=== PATIENT | male | born 1945 | race Caucasian/White ===

== ENCOUNTER 2018-10-01 10:42 | Observation (INO) | payer OTHER ==
[2018-10-01] VITALS (28 sets, daily range): BP systolic 112–162; BP diastolic 46–87; PULSE 58–76; RESP 14–21; Ht 166.4 cm; Wt 89.2 kg
[~2018-10-01] VITALS: Ht 166.4 cm; Wt 89.2 kg
[~2018-10-01 10:42] MED LIST: CIPROFLOXACIN 400 MG in D5W 200 ML IVPB ONE; GLYCOPYRROLATE 0.4 MG INJ ONE; NEOSTIGMINE 10 MG INJ ONE; SEVOFLURANE 15 MIN ONE
[2018-10-01] MEDS ORDERED: DOCU-144 PO (11:31)
[2018-10-01] MEDS ORDERED: LOSA100T3 PO (11:31)
[2018-10-01] MEDS ORDERED: INSU100I12 SQ (11:32)
[2018-10-01] MEDS ORDERED: HYDR25TA6 PO (11:33)
[2018-10-01] MEDS ORDERED: ATOR40TA68 PO (11:35)
[2018-10-01] MEDS ORDERED: HYDR-4011 PO (11:36)
[2018-10-01] MEDS ORDERED: METF100010 PO (11:37)
[2018-10-01] MEDS ORDERED: ACET-2047 PO (11:37)
[2018-10-01] MEDS ORDERED: METO-429 PO (11:39)
[2018-10-01] MEDS ORDERED: NITR0.4T39 SL (11:40)
[2018-10-01] MEDS ORDERED: OMEP20CA16 PO (11:40)
[2018-10-01] MEDS ORDERED: CARB15DR7 BOTH EYES (11:41)
[2018-10-01] MEDS ORDERED: SENN-120 PO (11:41)
[2018-10-01] MEDS ORDERED: TAMS0.4C2 PO (11:41)
[2018-10-01] MEDS ORDERED: TRAM50TA PO (11:42)
[2018-10-01] MEDS ORDERED: ASCO500C7 PO (11:42)
[2018-10-01] MEDS ORDERED: CHOL100062 PO (11:43)
--- NOTE | 2018-10-01 12:43 | PREAC ---
Date/Time of Note Date/Time of Note DATE: 10/01/18 TIME: 12:41 Anesthesia Eval and Record Evaluation Time Pre-Procedure Interview DATE: 10/01/18 TIME: 12:41 Age 72 Sex male NPO: 8 hrs Preoperative diagnosis BLADDER CANCER Planned procedure TURBT, POSS BILAT RETRO PYELOGRAM AND INSERTION OF STENTS, MITOMYCIN Past Medical History Past Medical History: Includes Cardio: HTN, Dyslipidemia, CAD (EF 60% 09/08/18), CABG (2010), Other (CARDIAC CLEARANCE FROM DR DEE 09/24/18. ) Endo: Diabetes (GLUCOSE 149) Pulm: Smoking Hx (STILL SMOKES 1-3 CIGS/DAY, LAST SMOKE YESTERDAY ) Surgery & Anesthesia Issues No known issue Meds Anticoagulation: Yes Beta Edil within 24 hr: Yes Reported Medications Cholecalciferol* (Vitamin D3*) 1,000 Unit Tablet, 1000 UNIT PO DAILY, TAB 10/01/18 Ascorbic Acid* (Vitamin C*) 500 Mg Capsule.sa, 500 MG PO BID, CAP 10/01/18 Tramadol Hcl* (Ultram*) 50 Mg Tablet, 50 MG PO Q6H PRN for PAIN, TAB 10/01/18 Tamsulosin Hcl* (Tamsulosin Hcl*) 0.4 Mg Cap.er.24h, 0.4 MG PO HS, CAP 10/01/18 Sennosides* (Senna Lax*) 8.6 Mg Tablet, 1 TAB PO BID, TAB 10/01/18 Carboxymethylcellulose Sodium (Refresh Liquigel) 15 Ml Drp.lq.gel, 2 DRP BOTH EYES BID, BOTTLE 10/01/18 Omeprazole* (Omeprazole*) 20 Mg Capsule.dr, 20 MG PO DAILY, #30 CAP 10/01/18 Nitroglycerin* (Nitrostat*) 0.4 Mg Tab.subl, 0.4 MG SL Q5MIN PRN for CHEST PAIN, BOTTLE 10/01/18 Metoprolol Tartrate* (Lopressor*) 50 Mg Tab, 50 MG PO BID, #60 TAB 10/01/18 Metformin Hcl* (Metformin Hcl*) 1,000 Mg Tablet, 1000 MG PO WITH BREAKFAST, #30 TAB 10/01/18 Acetaminophen* (Acetaminophen*) 650 Mg Tablet, 650 MG PO Q4 PRN for PAIN AND OR ELEVATED TEMP, #30 TAB 10/01/18 Hydrocodone/Acetaminophen ([place] 5-325 Tablet) 1 Each Tablet, 2 EACH PO Q6 PRN for PAIN LEVEL 7-10, TAB 10/01/18 Hydrocodone/Acetaminophen ([place] 5-325 Tablet) 1 Each Tablet, 1 EACH PO Q6 PRN for PAIN LEVEL 4-6, TAB 10/01/18 Atorvastatin* (Atorvastatin*) 40 Mg Tablet, 40 MG PO QHS, #30 TAB 10/01/18 Hydrochlorothiazide* (Hydrochlorothiazide*) 25 Mg Tab, 25 MG PO DAILY, #30 TAB HOLD IF SBP BELOW 110 OR HR BELOW 60 10/01/18 Insulin Lispro (Humalog Kwikpen U-100) 100 Unit/1 Ml Insuln.pen, 0 SQ DAILY PRN for ELEVATED BLOOD PRESSURE, EA 10/01/18 Losartan Potassium* (Cozaar*) 100 Mg Tablet, 100 MG PO DAILY, #30 TAB HOLD IF SBP BELOW 110 OR HR BELOW 60 10/01/18 Docusate Sodium* (Colace*) 100 Mg Capsule, 100 MG PO DAILY, #30 CAP 10/01/18 Meds reviewed: Yes Allergies Coded Allergies: Penicillins (Verified Allergy, Unknown, 10/01/18) Allergies Reviewed: Yes Labs/Studies Labs Reviewed: Reviewed by anesthesiologist test: N/A Studies: ECG, CXR, 2D Echo Pre-procedure Exam Last vitals Vital Signs Date Temp Pulse Resp B/P (MAP) Pulse Ox O2 O2 Flow FiO2 Time Delivery Rate 10/01/18 97.6 68 18 121/60 97 Room Air 12:17 (80) Airway: Adequate mouth opening, Adequate thyromental dist Mallampati: Mallampati II Teeth: Normal Lung: Normal Heart: Normal ASA Physical Status ASA physical status: 3 Emergency: None Planned Anesthetic General/MAC: ETT Planned Pain Management Parenteral pain med, Local by surgeon Pre-operative Attestations Prior to commencing anesthesia and surgery, the patient was re-evaluated, there was verification of: *The patient's identity *The results of appropriate recent lab work and preoperative vital signs *The above evaluation not changing prior to induction *Anesthetic plan, risk benefits, alternative and complications discussed with patient/family; questions answered; patient/family understands, accepts and wishes to proceed. LIVAN ENGLE Oct 01, 2018 12:43
--- NOTE | 2018-10-01 14:24 | HPN ---
Date/Time of Note Date/Time of Note DATE: 10/01/18 TIME: 14:24 Interval H&P Admission Note Pt. seen H&P reviewed: No system changes NINFA ARAGON Oct 01, 2018 14:24
[2018-10-01] MEDS ORDERED: ROCURONIUM 50 MG INJ ONE (14:47)
[2018-10-01] MEDS ORDERED: SUCCINYLCHOLINE CHLORIDE 100 MG/5 ML SYG IV ONE (14:47)
[2018-10-01] MEDS ORDERED: PROPOFOL 20 ML ONE (14:47)
[2018-10-01] MEDS ORDERED: LIDOCAINE 2% (SDV) 5 ML INJ ONE (14:47)
[2018-10-01] MEDS ORDERED: GLYCOPYRROLATE 0.4 MG INJ ONE (14:47)
[2018-10-01] MEDS ORDERED: HYDROmorphONE 1 MG/5 ML IV SYRINGE IV PRN ×3 (15:00)
[2018-10-01] MEDS ORDERED: hydrALAzine 20 MG INJ IV PRN (15:00)
[2018-10-01] MEDS ORDERED: EPHEDrine SULFATE 50 MG/5 ML SYG IV PRN (15:00)
[2018-10-01] MEDS ORDERED: OXYCODONE/ACETAMINOPHEN (5/325) TAB PO PRN ×2 (15:00)
[2018-10-01] MEDS ORDERED: DIPHENHYDRAMINE 50 MG INJ IV PRN (15:00)
[2018-10-01] MEDS ORDERED: FENTAnyl 50 MCG/ML VIAL IV PRN ×3 (15:00→20:00)
[2018-10-01] MEDS ORDERED: LABETALOL HCL 20MG INJ IV PRN (15:00)
[2018-10-01] MEDS ORDERED: ONDANSETRON 4 MG INJ IV PRN ×2 (15:00→17:00)
[2018-10-01] MEDS ORDERED: MEPERIDINE 25 MG INJ IV PRN (15:00)
[2018-10-01] MEDS ORDERED: METOCLOPRAMIDE 10 MG INJ IV PRN (15:00)
[2018-10-01] MEDS ORDERED: MIDAZOLAM 1 MG/ML 2 ML INJ IV PRN (15:00)
[2018-10-01] MEDS: DEXTROSE 5%-0.45% NACL 1,000 ML IV SCH (16:19)
[2018-10-01] MEDS ORDERED: BELLADONNA ALK/OPIUM SUPP PR PRN (16:30)
[2018-10-01] MEDS ORDERED: MAGNESIUM HYDROXIDE 30ML CUP PO PRN (16:30)
--- NOTE | 2018-10-01 16:55 | CONS ---
Assessment/Plan Assessment/Plan Hospital Course (Demo Recall) Patient is a male with a past medical history significant for bladder cancer, coronary artery disease status post CABG in 2010, dyslipidemia, hypertension, tobacco use who presents to [facility] for elective bladder tumor resection. Patient currently is the postanesthesia care unit and is complaining of severe surgical site pain. Patient currently denies shortness of breath, chest pain, headache, leg pain. Patient does state that he has some nausea and is having mild vomiting. Objective Physical exam General: Patient is laying in bed and answers questions appropriately Mentation: Patient is alert and oriented 4, Head: Normocephalic atraumatic Eyes: EOMI, pupils reactive to light Neck: Supple, nontender, midline Respiratory: Clear to auscultation bilaterally Cardiovascular: regular rate, no obvious murmurs Gastrointestinal: non-tender to palpation, bowel sounds heard. Neurological: Moves all extremities spontaneously Skin: No new skin lesions Assessment and plan Bladder cancer status post TURBT -Unknown type, patient still in a lot of pain so unable to get more history -Elective surgery, patient will stay inpatient for CBI per urologist -Urology, Dr. Luke to manage urological issues -Follow-up with pathology reports and bladder cancer treatment with urologist and outpatient oncologist Coronary artery disease status post CABG in 2010 -Continue home meds -Continue aspirin when okay with urology Diabetes mellitus -Insulin while in house Dyslipidemia -Continue home meds Hypertension -Continue home meds GERD -Protonix Disposition -Per urology, stay overnight for CBI, treat pain as needed. Internal medicine will consult Consultation Date/Type/Reason Admit Date/Time Oct 01, 2018 at 16:22 Date/Time of Note DATE: 10/01/18 TIME: 16:55 Past Medical History Home Meds Reported Medications Cholecalciferol* (Vitamin D3*) 1,000 Unit Tablet, 1000 UNIT PO DAILY, TAB 10/01/18 Ascorbic Acid* (Vitamin C*) 500 Mg Capsule.sa, 500 MG PO BID, CAP 10/01/18 Tramadol Hcl* (Ultram*) 50 Mg Tablet, 50 MG PO Q6H PRN for PAIN, TAB 10/01/18 Tamsulosin Hcl* (Tamsulosin Hcl*) 0.4 Mg Cap.er.24h, 0.4 MG PO HS, CAP 10/01/18 Sennosides* (Senna Lax*) 8.6 Mg Tablet, 1 TAB PO BID, TAB 10/01/18 Carboxymethylcellulose Sodium (Refresh Liquigel) 15 Ml Drp.lq.gel, 2 DRP BOTH EYES BID, BOTTLE 10/01/18 Omeprazole* (Omeprazole*) 20 Mg Capsule.dr, 20 MG PO DAILY, #30 CAP 10/01/18 Nitroglycerin* (Nitrostat*) 0.4 Mg Tab.subl, 0.4 MG SL Q5MIN PRN for CHEST PAIN, BOTTLE 10/01/18 Metoprolol Tartrate* (Lopressor*) 50 Mg Tab, 50 MG PO BID, #60 TAB 10/01/18 Metformin Hcl* (Metformin Hcl*) 1,000 Mg Tablet, 1000 MG PO WITH BREAKFAST, #30 TAB 10/01/18 Acetaminophen* (Acetaminophen*) 650 Mg Tablet, 650 MG PO Q4 PRN for PAIN AND OR ELEVATED TEMP, #30 TAB 10/01/18 Hydrocodone/Acetaminophen ([place] 5-325 Tablet) 1 Each Tablet, 2 EACH PO Q6 PRN for PAIN LEVEL 7-10, TAB 10/01/18 Hydrocodone/Acetaminophen ([place] 5-325 Tablet) 1 Each Tablet, 1 EACH PO Q6 PRN for PAIN LEVEL 4-6, TAB 10/01/18 Atorvastatin* (Atorvastatin*) 40 Mg Tablet, 40 MG PO QHS, #30 TAB 10/01/18 Hydrochlorothiazide* (Hydrochlorothiazide*) 25 Mg Tab, 25 MG PO DAILY, #30 TAB HOLD IF SBP BELOW 110 OR HR BELOW 60 10/01/18 Insulin Lispro (Humalog Kwikpen U-100) 100 Unit/1 Ml Insuln.pen, 0 SQ DAILY PRN for ELEVATED BLOOD PRESSURE, EA 10/01/18 Losartan Potassium* (Cozaar*) 100 Mg Tablet, 100 MG PO DAILY, #30 TAB HOLD IF SBP BELOW 110 OR HR BELOW 60 10/01/18 Docusate Sodium* (Colace*) 100 Mg Capsule, 100 MG PO DAILY, #30 CAP 10/01/18 Medications Current Medications Hydromorphone HCl (Dilaudid) 0.2 mg PACU PRN IV MILD PAIN 1-3; Start 10/01/18 at 15:00; Stop 10/01/18 at 19:30 Hydromorphone HCl (Dilaudid) 0.4 mg PACU PRN IV MOD PAIN 4-6; Start 10/01/18 at 15:00; Stop 10/01/18 at 19:30 Hydromorphone HCl (Dilaudid) 0.6 mg PACU PRN IV SEVERE PAIN 7-10 Last administered on 10/01/18at 16:39; Admin Dose 0.6 MG; Start 10/01/18 at 15:00; Stop 10/01/18 at 19:30 Fentanyl (Sublimaze) 25 mcg PACU ORDER PRN IV MILD PAIN 1-3; Start 10/01/18 at 15:00; Stop 10/01/18 at 19:30 Fentanyl (Sublimaze) 50 mcg PACU ORDER PRN IV MOD PAIN 4-6; Start 10/01/18 at 15:00; Stop 10/01/18 at 19:30 Fentanyl (Sublimaze) 75 mcg PACU ORDER PRN IV SEVERE PAIN 7-10; Start 10/01/18 at 15:00; Stop 10/01/18 at 19:30 Oxycodone/ Acetaminophen (Percocet (5/ 325)) 1 tab PACU ORDER PRN PO .PAIN 1-5; Start 10/01/18 at 15:00; Stop 10/01/18 at 19:30 Oxycodone/ Acetaminophen (Percocet (5/ 325)) 2 tab PACU ORDER PRN PO .PAIN 6-10; Start 10/01/18 at 15:00; Stop 10/01/18 at 19:30 Ondansetron HCl (Zofran Inj) 4 mg PACU ORDER PRN IV NAUSEA/VOMITING; Start 10/01/18 at 15:00; Stop 10/01/18 at 19:30 Metoclopramide HCl (Reglan) 10 mg PACU ORDER PRN IV NAUSEA/VOMITING; Start 10/01/18 at 15:00; Stop 10/01/18 at 19:30 Labetalol HCl (Labetalol) 5 mg PACU ORDER PRN IV HIGH BLOOD PRESSURE; Start 10/01/18 at 15:00; Stop 10/01/18 at 19:30 Hydralazine HCl (Apresoline) 5 mg PACU ORDER PRN IV HIGH BLOOD PRESSURE; Start 10/01/18 at 15:00; Stop 10/01/18 at 19:30 Ephedrine Sulfate 5 mg PACU ORDER PRN IV BLOOD PRESSURE SUPPORT; Start 10/01/18 at 15:00; Stop 10/01/18 at 19:30 Meperidine HCl (Demerol) 25 mg PACU ORDER PRN IV .RIGORS; Start 10/01/18 at 15:00; Stop 10/01/18 at 19:30 Diphenhydramine HCl (Benadryl) 25 mg PACU ORDER PRN IV .PRURITUS; Start 10/01/18 at 15:00; Stop 10/01/18 at 19:30 Midazolam HCl (Versed) 0.5 mg PACU ORDER PRN IV .ANXIETY; Start 10/01/18 at 15:00; Stop 10/01/18 at 19:30 Dextrose/Sodium Chloride 1,000 ml @ 50 mls/hr Q20H IV ; Start 10/01/18 at 16:19 Acetaminophen/ Hydrocodone Bitart ([place] (5/325)) 1 tab Q4H PRN PO PAIN; Start 10/01/18 at 16:30 Docusate Sodium (Colace) 100 mg BID PO ; Start 10/01/18 at 21:00 Magnesium Hydroxide (Milk Of Mag) 30 ml DAILY PRN PO CONSTIPATION; Start 10/01/18 at 16:30 Ciprofloxacin (Cipro) 500 mg BID@06,18 PO ; Start 10/01/18 at 18:00 Belladonna Alkaloids/Opium (B&O No.15a) 1 supp QID PRN NC PAIN LEVEL 4-6 Last administered on 10/01/18at 16:52; Admin Dose 1 SUPP; Start 10/01/18 at 16:30 IV Flush (NS 3 ml) 3 ml PER PROTOCOL IV ; Start 10/01/18 at 17:00 Ondansetron HCl (Zofran Inj) 4 mg Q6H PRN IV NAUSEA/VOMITING; Start 10/01/18 at 17:00 Acetaminophen (Tylenol Tab) 650 mg Q6H PRN PO .PAIN 1-3 OR TEMP; Start 10/01/18 at 17:00 Morphine Sulfate (morphine) 2 mg Q4H PRN IV .PAIN 7-10; Start 10/01/18 at 17:00 Ascorbic Acid (Vitamin C) 500 mg BID PO ; Start 10/01/18 at 21:00; Status UNV Atorvastatin Calcium (Lipitor) 40 mg QHS PO ; Start 10/01/18 at 21:00; Status UNV Cholecalciferol (Vitamin D) 1,000 unit DAILY PO ; Start 10/02/18 at 09:00; Status UNV Docusate Sodium (Colace) 100 mg DAILY PO ; Start 10/02/18 at 09:00; Status UNV Hydrochlorothiazide (Hydrochlorothiazide) 25 mg DAILY PO ; Start 10/02/18 at 09:00; Status UNV Losartan Potassium (Cozaar) 100 mg DAILY PO ; Start 10/02/18 at 09:00; Status UNV Metoprolol Tartrate (Lopressor) 50 mg BID PO ; Start 10/01/18 at 21:00; Status UNV Tamsulosin HCl (Flomax) 0.4 mg HS PO ; Start 10/01/18 at 21:00; Status UNV Miscellaneous Information (* Miscellaneous Pharmacy Order) Discontinue current oral sulfonylur... ONCE ONCE XX ; Start 10/01/18 at 17:00; Stop 10/01/18 at 17:01; Status UNV Diagnostic Test (Pha) (Accu-Chek) 1 ea 02 XX ; Start 10/02/18 at 02:00; Status UNV Insulin Glargine (Lantus) 18 units DAILY@2000 SC ; Start 10/01/18 at 20:00; Status UNV Insulin Aspart (Novolog Insulin Pen) 4 unit WITH MEALS SC ; Start 10/01/18 at 18:00 Miscellaneous Information (* Miscellaneous Pharmacy Order) HYPOGLYCEMIA PROTOCOL w... ONCE ONCE XX ; Start 10/01/18 at 17:00; Stop 10/01/18 at 17:01; Status UNV Insulin Aspart (Novolog Insulin Pen) NOVOLOG *MILD* ALGORITHM WITH MEALS BEDTIME SC ; Start 10/01/18 at 18:00; Status UNV Miscellaneous Information (* Miscellaneous Pharmacy Order) Discontinue all previ... ONCE ONCE XX ; Start 10/01/18 at 17:00; Stop 10/01/18 at 17:01; Status UNV Allergies: Coded Allergies: Penicillins (Verified Allergy, Unknown, 10/01/18) Social History Smoking Status: Current every day smoker Exam/Review of Systems Exam Vitals Vital Signs Date Temp Pulse Resp B/P (MAP) Pulse Ox O2 O2 Flow FiO2 Time Delivery Rate 10/01/18 98.2 16:27 10/01/18 68 18 121/60 97 Room Air 12:17 (80) Results Results 24hrs Laboratory Tests Test 10/01/18 11:58 Bedside Glucose 149 Medications Medication Current Medications Hydromorphone HCl (Dilaudid) 0.2 mg PACU PRN IV MILD PAIN 1-3; Start 10/01/18 at 15:00; Stop 10/01/18 at 19:30 Hydromorphone HCl (Dilaudid) 0.4 mg PACU PRN IV MOD PAIN 4-6; Start 10/01/18 at 15:00; Stop 10/01/18 at 19:30 Hydromorphone HCl (Dilaudid) 0.6 mg PACU PRN IV SEVERE PAIN 7-10 Last administered on 10/01/18at 16:39; Admin Dose 0.6 MG; Start 10/01/18 at 15:00; Stop 10/01/18 at 19:30 Fentanyl (Sublimaze) 25 mcg PACU ORDER PRN IV MILD PAIN 1-3; Start 10/01/18 at 15:00; Stop 10/01/18 at 19:30 Fentanyl (Sublimaze) 50 mcg PACU ORDER PRN IV MOD PAIN 4-6; Start 10/01/18 at 15:00; Stop 10/01/18 at 19:30 Fentanyl (Sublimaze) 75 mcg PACU ORDER PRN IV SEVERE PAIN 7-10; Start 10/01/18 at 15:00; Stop 10/01/18 at 19:30 Oxycodone/ Acetaminophen (Percocet (5/ 325)) 1 tab PACU ORDER PRN PO .PAIN 1-5; Start 10/01/18 at 15:00; Stop 10/01/18 at 19:30 Oxycodone/ Acetaminophen (Percocet (5/ 325)) 2 tab PACU ORDER PRN PO .PAIN 6-10; Start 10/01/18 at 15:00; Stop 10/01/18 at 19:30 Ondansetron HCl (Zofran Inj) 4 mg PACU ORDER PRN IV NAUSEA/VOMITING; Start 10/01/18 at 15:00; Stop 10/01/18 at 19:30 Metoclopramide HCl (Reglan) 10 mg PACU ORDER PRN IV NAUSEA/VOMITING; Start 10/01/18 at 15:00; Stop 10/01/18 at 19:30 Labetalol HCl (Labetalol) 5 mg PACU ORDER PRN IV HIGH BLOOD PRESSURE; Start 10/01/18 at 15:00; Stop 10/01/18 at 19:30 Hydralazine HCl (Apresoline) 5 mg PACU ORDER PRN IV HIGH BLOOD PRESSURE; Start 10/01/18 at 15:00; Stop 10/01/18 at 19:30 Ephedrine Sulfate 5 mg PACU ORDER PRN IV BLOOD PRESSURE SUPPORT; Start 10/01/18 at 15:00; Stop 10/01/18 at 19:30 Meperidine HCl (Demerol) 25 mg PACU ORDER PRN IV .RIGORS; Start 10/01/18 at 15:00; Stop 10/01/18 at 19:30 Diphenhydramine HCl (Benadryl) 25 mg PACU ORDER PRN IV .PRURITUS; Start 10/01/18 at 15:00; Stop 10/01/18 at 19:30 Midazolam HCl (Versed) 0.5 mg PACU ORDER PRN IV .ANXIETY; Start 10/01/18 at 15:00; Stop 10/01/18 at 19:30 Dextrose/Sodium Chloride 1,000 ml @ 50 mls/hr Q20H IV ; Start 10/01/18 at 16:19 Acetaminophen/ Hydrocodone Bitart ([place] (5/325)) 1 tab Q4H PRN PO PAIN; Start 10/01/18 at 16:30 Docusate Sodium (Colace) 100 mg BID PO ; Start 10/01/18 at 21:00 Magnesium Hydroxide (Milk Of Mag) 30 ml DAILY PRN PO CONSTIPATION; Start at 16:30 Ciprofloxacin (Cipro) 500 mg BID@06,18 PO ; Start 10/01/18 at 18:00 Belladonna Alkaloids/Opium (B&O No.15a) 1 supp QID PRN NC PAIN LEVEL 4-6 Last administered on 10/01/18at 16:52; Admin Dose 1 SUPP; Start 10/01/18 at 16:30 IV Flush (NS 3 ml) 3 ml PER PROTOCOL IV ; Start 10/01/18 at 17:00 Ondansetron HCl (Zofran Inj) 4 mg Q6H PRN IV NAUSEA/VOMITING; Start 10/01/18 at 17:00 Acetaminophen (Tylenol Tab) 650 mg Q6H PRN PO .PAIN 1-3 OR TEMP; Start 10/01/18 at 17:00 Morphine Sulfate (morphine) 2 mg Q4H PRN IV .PAIN 7-10; Start 10/01/18 at 17:00 Ascorbic Acid (Vitamin C) 500 mg BID PO ; Start 10/01/18 at 21:00; Status UNV Atorvastatin Calcium (Lipitor) 40 mg QHS PO ; Start 10/01/18 at 21:00; Status UNV Cholecalciferol (Vitamin D) 1,000 unit DAILY PO ; Start 10/02/18 at 09:00; Status UNV Docusate Sodium (Colace) 100 mg DAILY PO ; Start 10/02/18 at 09:00; Status UNV Hydrochlorothiazide (Hydrochlorothiazide) 25 mg DAILY PO ; Start 10/02/18 at 09:00; Status UNV Losartan Potassium (Cozaar) 100 mg DAILY PO ; Start 10/02/18 at 09:00; Status UNV Metoprolol Tartrate (Lopressor) 50 mg BID PO ; Start 10/01/18 at 21:00; Status UNV Tamsulosin HCl (Flomax) 0.4 mg HS PO ; Start 10/01/18 at 21:00; Status UNV Miscellaneous Information (* Miscellaneous Pharmacy Order) Discontinue current oral sulfonylur... ONCE ONCE XX ; Start 10/01/18 at 17:00; Stop 10/01/18 at 17:01; Status UNV Diagnostic Test (Pha) (Accu-Chek) 1 ea 02 XX ; Start 10/02/18 at 02:00; Status UNV Insulin Glargine (Lantus) 18 units DAILY@2000 SC ; Start 10/01/18 at 20:00; Status UNV Insulin Aspart (Novolog Insulin Pen) 4 unit WITH MEALS SC ; Start 10/01/18 at 18:00 Miscellaneous Information (* Miscellaneous Pharmacy Order) HYPOGLYCEMIA PROTOCOL w... ONCE ONCE XX ; Start 10/01/18 at 17:00; Stop 10/01/18 at 17:01; Status UNV Insulin Aspart (Novolog Insulin Pen) NOVOLOG *MILD* ALGORITHM WITH MEALS BEDTIME SC ; Start 10/01/18 at 18:00; Status UNV Miscellaneous Information (* Miscellaneous Pharmacy Order) Discontinue all previ... ONCE ONCE XX ; Start 10/01/18 at 17:00; Stop 10/01/18 at 17:01; Status UNV COMFORT KRAFT Oct 01, 2018 16:55
[2018-10-01] MEDS ORDERED: ACETAMINOPHEN 325 MG TAB PO PRN (17:00)
[2018-10-01] MEDS ORDERED: NACL 0.9% 3 ML SYG IV SCH (17:00)
[2018-10-01] MEDS: FENTAnyl 50 MCG/ML VIAL IV PRN ×3 (17:01→18:14)
[2018-10-01] MEDS ORDERED: DEXTROSE 50% 50 ML SYRINGE IV PRN ×2 (17:30)
[2018-10-01] MEDS ORDERED: GLUCOSE GEL 15 GRAM TUBE BUCCAL PRN (17:30)
[2018-10-01] MEDS ORDERED: GLUCOSE GEL 15 GRAM TUBE PO PRN ×2 (17:30)
[2018-10-01] MEDS ORDERED: GLUCAGON 1 MG INJ IM PRN (17:30)
[2018-10-01] MEDS: INSULIN ASPART [NOVOLOG] 3 ML PEN SC SCH ×2 (18:00→21:00)
[2018-10-01] MEDS ORDERED: CIPROFLOXACIN 500 MG TAB PO SCH (18:00)
[2018-10-01] MEDS ORDERED: INSULIN GLARGINE [LANTus] (100 UNITS/ML) SYG SC SCH (20:00)
[2018-10-01] MEDS ORDERED: ATORVASTATIN 40 MG TAB PO SCH (21:00)
[2018-10-01] MEDS ORDERED: TAMSULOSIN (SR) 0.4 MG CAP PO SCH (21:00)
[2018-10-01] MEDS: morphine 2 MG INJ IV PRN (21:28)
--- NOTE | 2018-10-01 21:39 | OPR ---
DATE OF OPERATION: PREOPERATIVE DIAGNOSIS: Bladder cancer. POSTOPERATIVE DIAGNOSIS: Extensive bladder cancer. OPERATION PERFORMED: Transurethral resection of multiple large bladder tumor with bladder tumor occu pying a significant volume of the bladder. SURGEON: Ninfa Aragon MD ANESTHESIA: General. COMPLICATIONS: None. DRAINS: A 22-[place] 3-way Roper catheter. SPECIMEN: Bladder tumor. DESCRIPTION OF PROCEDURE: The patient was brought into the operating room and placed on the operatin g table in the supine lithotomy position. He was prepped and draped in the usual fashion after anest hesia was induced. A timeout was undertaken. Appropriate pressure points were padded using preopera tive antibiotic therapy and sequential compression devices were applied. Rigid cystoscopy was undert aken with a 12-degree, 30-degree and 70-degree angle lens. No abnormalities of the anterior or poste riorly could be appreciated. Initially, a large volume of bladder cancer could be appreciated. Mult iple papillary large tumors could be appreciated occupying a large and significant amount of the volu me of the bladder. With further evaluation, the bladder tumors are arising from the level of the vick dder neck extending onto the right lateral wall and then onto the posterior wall and extending onto t he dome of the bladder. Initially, the ureteral orifices were unable to be visualized, but later on, bilateral ureteral orifices were identified and noted to be in normal anatomical position and well p reserved throughout the entire case. Transurethral resection of the bladder tumors was undertaken un karie direct vision at all times and my attention was first drawn to the right lateral wall where a vaughn y large bladder tumor was appreciated. This bladder tumor had a very wide base and extended from the bladder neck to the posterior wall extending on the complete right lateral wall up to the dome of th e bladder. The tumor was very vascular and to stop bleeding and to obtain control as well as to get a specimen, this was needed to be taken down to the base of the bladder tumor. Coagulation of the ba se of the tumor was undertaken. No perforation could be appreciated. Additional bladder tumors were noted to be oozing at this point unless it was decided to resect all of the bladder cancer. All the tumors were subsequently resected down to their base with pinpoint hemostasis being obtained. Once again, the stalks of the bladder tumors are arising from the level of the bladder neck, right lateral wall, right side of the dome of the bladder and right posterior wall extending onto the left side of the posterior wall. Due to oozing at the bases despite coagulation, a 22-[place] 3-way Roper cathete r was inserted. Continuous bladder irrigation was initiated and efflux was noted to be clear. He wi ll be admitted for observation overnight time. Further intervention evaluation pending clinical cour se and pathology. Dictated By: NINFA ARAGON MD EGR/NTS Conf#: [id number] DID#: [id number]
[2018-10-01] MEDS: DOCUSATE SODIUM 100 MG CAP PO SCH (22:08)
[2018-10-01] MEDS: METOPROLOL 50 MG TAB PO SCH (22:09)
[2018-10-01] MEDS: ASCORBIC ACID 500 MG TAB PO SCH (22:09)
[2018-10-01] MEDS: HYDROCODONE/APAP (5/325) TAB PO PRN (22:43)
[2018-10-02] MEDS: morphine 2 MG INJ IV PRN ×2 (01:54→08:13)
[2018-10-02] MEDS ORDERED: ACCU-CHEK XX SCH (02:00)
[2018-10-02 02:33] VITALS: BP 116/55; PULSE 61; RESP 20
[2018-10-02] MEDS: DEXTROSE 5%-0.45% NACL 1,000 ML IV SCH (02:37)
[2018-10-02] MEDS: HYDROCODONE/APAP (5/325) TAB PO PRN ×3 (03:41→17:23)
[2018-10-02] MEDS ORDERED: PANTOPRAZOLE (EC) 40 MG TAB PO SCH (06:00)
[2018-10-02] MEDS: CIPROFLOXACIN 500 MG TAB PO SCH ×2 (06:01→17:17)
--- NOTE | 2018-10-02 07:28 | PAC ---
Date/Time of Note Date/Time of Note DATE: 10/02/18 TIME: 07:28 Post-Anesthesia Notes Post-Anesthesia Note Last documented vital signs Vital Signs Date Temp Pulse Resp B/P (MAP) Pulse Ox O2 O2 Flow FiO2 Time Delivery Rate 10/02/18 97.8 61 20 116/55 99 02:33 (75) 10/01/18 Room Air 21:13 10/01/18 2.0 19:49 Activity: WNL Respiratory function: WNL Cardiovascular function: WNL Mental status: Baseline Pain reasonably controlled: Yes Hydration appropriate: Yes Nausea/Vomiting absent: Yes ROME KRAFT MD Oct 02, 2018 07:28
[2018-10-02] MEDS: INSULIN ASPART [NOVOLOG] 3 ML PEN SC SCH ×6 (08:08→17:17)
[2018-10-02] MEDS: ASCORBIC ACID 500 MG TAB PO SCH (08:09)
[2018-10-02] MEDS: DOCUSATE SODIUM 100 MG CAP PO SCH (08:09)
[2018-10-02] MEDS: METOPROLOL 50 MG TAB PO SCH (08:10)
[2018-10-02 08:17] VITALS: BP 129/60; PULSE 59; RESP 18
[2018-10-02] MEDS ORDERED: DOCUSATE SODIUM 100 MG CAP PO SCH (09:00)
[2018-10-02] MEDS ORDERED: HYDROCHLOROTHIAZIDE 25 MG TAB PO SCH (09:00)
[2018-10-02] MEDS ORDERED: CHOLECALCIFEROL 1,000 UNIT TAB PO SCH (09:00)
[2018-10-02] MEDS ORDERED: LOSARTAN 50 MG TAB PO SCH (09:00)
--- NOTE | 2018-10-02 10:57 | PDOCDIS ---
Discharge Instructions DIAGNOSIS Discharge Diagnosis Bladder Cancer CONDITION [place] Patient Condition: [id number] Fair HOME CARE INSTRUCTIONS: [place] Diet Instructions: [place]il[place] Regular ACTIVITY: [place] Activity Restrictions: [place]il[place] Slowly Increase Activity [place] Bathing Restrictions: [place] Shower FOLLOW UP/APPOINTMENTS Follow-up Plan Follow up in office in 2 weeks for removal of Roper DC to home today with Roper to leg bag and gravity bag REFERRALS [place] Referring Provider: NINFA Duff OTHER ORDERS: Other Orders: DC CBI Roper to leg bag SCHOOL/WORK RELEASE May return to School/Work on: Oct 20, 2018 NINFA ARAGON Oct 02, 2018 10:57
--- NOTE | 2018-10-02 13:44 | DS ---
DATE OF ADMISSION: 10/01/2018 DATE OF DISCHARGE: HISTORY: Mayte is status post transurethral resection of extensive bladder cancer which filled out a large proportion of his bladder. The patient was kept overnight on continuous bladder irrigation. Slow continuous bladder irrigation has been crystal clear. The patient this morning is eating dain d foods without any nausea or vomiting. PHYSICAL EXAMINATION: VITAL SIGNS: Blood pressure 116/55, heart rate 61, respirations 20. ABDOMEN: Soft, nondistended. Positive bowel sounds. No rebound, no guarding. The patient is morbi dly obese. FLANK: No CVA tenderness, no masses. GENITALIA: Normal shaft of penis, meatus, scrotum, testicles and epididymis. Roper catheter drainin g clear yellow urine. LABORATORY DATA: White blood count 10.2, hemoglobin 13.6. Sodium 140, creatinine 1.1. IMPRESSION: Doing well status post extensive removal of bladder carcinoma. PLAN: Continue Roper catheter for a 2-week period of time. Follow up in office in 2 weeks for a tri al of void. During this interval time, continue Roper catheter. Patient is to remain on all of his home medications: Includin. Atorvastatin. 2. Losartan. 3. Metoprolol. 4. Nitroglycerin. 5. Tylenol. 6. [place]. 7. Ultram. 8. Lasix. 9. Carboxymethylcellulose. 10. Ducocet. 11. Omeprazole. 12. Senna-Lax. 13. Insulin. 14. Metformin. 15. Vitamin C. 16. Vitamin D. Further intervention evaluation pending clinical course and results of above. Dictated By: NINFA ARAGON MD EGR/NTS Conf#: [id number] DID#: [id number] CC: NINFA ARAGON MD;*EndCC*
[2018-10-02] MEDS ORDERED: NITROGLYCERIN (SL) 0.4 MG TAB ONE (14:10)
[2018-10-02] MEDS ORDERED: NITROGLYCERIN (SL) 0.4 MG TAB SL ONE (14:30)
[2018-10-02 14:55] VITALS: BP 126/60; PULSE 61; RESP 18
--- NOTE | 2018-10-02 17:13 | PN ---
Date/Time of Note Date/Time of Note DATE: 10/02/18 TIME: 17:09 Assessment/Plan VTE Prophylaxis Risk score (from Ns)>0 risk: 4 SCD applied (from Ns): Yes Pharmacological prophylaxis: NA/contraindicated Pharm contraindication: bleeding Lines/Catheters IV C[facility]ter Type (from [facility]): Peripheral IV Assessment/Plan Hospital Course Bladder cancer status post TURBT -Unknown type -Status post bladder irrigation -DC today back to [place] [facility] per urology -Follow-up with pathology reports and bladder cancer treatment with urologist and outpatient oncologist Coronary artery disease status post CABG in 2010 -Continue home meds Diabetes mellitus -Continue home regimen Dyslipidemia -Continue home meds Hypertension -Continue home meds GERD -Protonix Disposition: DC today per urology Result Diagram: 10/01/18 1752 10/02/18 0517 Results 24hrs Laboratory Tests Test 10/01/18 17:27 10/01/18 17:52 10/01/18 20:45 10/01/18 22:12 Bedside Glucose 144 156 188 White Blood Count 10.2 Red Blood Count 4.70 Hemoglobin 13.6 L Hematocrit 42.4 Mean Corpuscular 90.2 Volume Mean Corpuscular 28.9 L Hemoglobin Mean Corpuscular 32.1 Hemoglobin Concent Red Cell 12.6 Distribution Width Platelet Count 253 Mean Platelet Volume 9.6 Immature 0.400 Granulocytes % Neutrophils % 69.4 Lymphocytes % 20.0 Monocytes % 7.6 Eosinophils % 2.1 Basophils % 0.5 Nucleated Red Blood 0.0 Cells % Immature 0.040 H Granulocytes # Neutrophils # 7.1 Lymphocytes # 2.0 Monocytes # 0.8 Eosinophils # 0.2 Basophils # 0.1 Nucleated Red Blood 0.0 Cells # Sodium Level 140 Potassium Level 5.1 Chloride Level 102 Carbon Dioxide Level 33 H Anion Gap 5 Blood Urea Nitrogen 19 Creatinine 1.09 Est Glomerular Filtrat Rate mL/min Glucose Level 149 Calcium Level 9.8 Test 10/02/18 02:28 10/02/18 05:17 10/02/18 07:52 10/02/18 12:05 Bedside Glucose 175 163 138 Sodium Level 140 Potassium Level 4.0 Chloride Level 101 Carbon Dioxide Level 31 Anion Gap 8 Blood Urea Nitrogen 17 Creatinine 1.11 Est Glomerular Filtrat Rate mL/min Glucose Level 167 Hemoglobin A1c 9.0 H Calcium Level 9.0 Magnesium Level 1.9 Total Bilirubin 0.6 Direct Bilirubin 0.00 Indirect Bilirubin 0.6 Aspartate Amino 22 Transf (AST/SGOT) Alanine 31 Aminotransferase (AL T/SGPT) Alkaline Phosphatase 70 Total Protein 6.1 Albumin 3.2 L Globulin 2.90 Albumin/Globulin 1.10 Ratio Subjective 24 Hr Interval Summary Constitutional: no complaints Exam/Review of Systems Exam Vitals Vital Signs Date Temp Pulse Resp B/P (MAP) Pulse Ox O2 O2 Flow FiO2 Time Delivery Rate 10/02/18 98.3 61 18 126/60 93 14:55 (82) 10/01/18 Room Air 21:13 10/01/18 2.0 19:49 Intake and Output 10/01/18 10/01/18 10/02/18 1515:00 23:00 07:00 IntakeIntake Total 1900 ml 600 ml OutputOutput Total 9050 ml 52625 ml BalanceBalance -7150 ml -88812 ml Constitutional: alert, oriented Respiratory: clear to auscultation Cardiovascular: regular rate and rhythm Gastrointestinal: soft; No distended Musculoskeletal: nl extremities to inspection Results Results 24hrs Laboratory Tests Test 10/01/18 17:27 10/01/18 17:52 10/01/18 20:45 10/01/18 22:12 Bedside Glucose 144 156 188 White Blood Count 10.2 Red Blood Count 4.70 Hemoglobin 13.6 L Hematocrit 42.4 Mean Corpuscular 90.2 Volume Mean Corpuscular 28.9 L Hemoglobin Mean Corpuscular 32.1 Hemoglobin Concent Red Cell 12.6 Distribution Width Platelet Count 253 Mean Platelet Volume 9.6 Immature 0.400 Granulocytes % Neutrophils % 69.4 Lymphocytes % 20.0 Monocytes % 7.6 Eosinophils % 2.1 Basophils % 0.5 Nucleated Red Blood 0.0 Cells % Immature 0.040 H Granulocytes # Neutrophils # 7.1 Lymphocytes # 2.0 Monocytes # 0.8 Eosinophils # 0.2 Basophils # 0.1 Nucleated Red Blood 0.0 Cells # Sodium Level 140 Potassium Level 5.1 Chloride Level 102 Carbon Dioxide Level 33 H Anion Gap 5 Blood Urea Nitrogen 19 Creatinine 1.09 Est Glomerular Filtrat Rate mL/min Glucose Level 149 Calcium Level 9.8 Test 10/02/18 02:28 10/02/18 05:17 10/02/18 07:52 10/02/18 12:05 Bedside Glucose 175 163 138 Sodium Level 140 Potassium Level 4.0 Chloride Level 101 Carbon Dioxide Level 31 Anion Gap 8 Blood Urea Nitrogen 17 Creatinine 1.11 Est Glomerular Filtrat Rate mL/min Glucose Level 167 Hemoglobin A1c 9.0 H Calcium Level 9.0 Magnesium Level 1.9 Total Bilirubin 0.6 Direct Bilirubin 0.00 Indirect Bilirubin 0.6 Aspartate Amino 22 Transf (AST/SGOT) Alanine 31 Aminotransferase (AL T/SGPT) Alkaline Phosphatase 70 Total Protein 6.1 Albumin 3.2 L Globulin 2.90 Albumin/Globulin 1.10 Ratio Medications Medication Current Medications Dextrose/Sodium Chloride 1,000 ml @ 50 mls/hr Q20H IV Last administered on 10/02/18at 02:37; Admin Dose 50 MLS/HR; Start 10/01/18 at 16:19 Acetaminophen/ Hydrocodone Bitart ([place] (5/325)) 1 tab Q4H PRN PO PAIN Last administered on 10/02/18at 10:57; Admin Dose 1 TAB; Start 10/01/18 at 16:30 Docusate Sodium (Colace) 100 mg BID PO Last administered on 10/02/18at 08:09; Admin Dose 100 MG; Start 10/01/18 at 21:00 Magnesium Hydroxide (Milk Of Mag) 30 ml DAILY PRN PO CONSTIPATION; Start 10/01/18 at 16:30 Belladonna Alkaloids/Opium (B&O No.15a) 1 supp QID PRN NV PAIN LEVEL 4-6 Last administered on 10/01/18at 16:52; Admin Dose 1 SUPP; Start 10/01/18 at 16:30 IV Flush (NS 3 ml) 3 ml PER PROTOCOL IV ; Start 10/01/18 at 17:00 Ondansetron HCl (Zofran Inj) 4 mg Q6H PRN IV NAUSEA/VOMITING; Start 10/01/18 at 17:00 Acetaminophen (Tylenol Tab) 650 mg Q6H PRN PO .PAIN 1-3 OR TEMP; Start 10/01/18 at 17:00 Morphine Sulfate (morphine) 2 mg Q4H PRN IV .PAIN 7-10 Last administered on 10/02/18at 08:13; Admin Dose 2 MG; Start 10/01/18 at 17:00 Ascorbic Acid (Vitamin C) 500 mg BID PO Last administered on 10/02/18at 08:09; Admin Dose 500 MG; Start 10/01/18 at 21:00 Atorvastatin Calcium (Lipitor) 40 mg QHS PO Last administered on 10/01/18 22:08; Admin Dose 40 MG; Start 10/01/18 at 21:00 Cholecalciferol (Vitamin D) 1,000 unit DAILY PO Last administered on 10/02/18 08:09; Admin Dose 1,000 UNIT; Start 10/02/18 at 09:00 Docusate Sodium (Colace) 100 mg DAILY PO Last administered on 10/02/18 09:27; Admin Dose 100 MG; Start 10/02/18 at 09:00 Hydrochlorothiazide (Hydrochlorothiazide) 25 mg DAILY PO Last administered on 10/02/18 08:09; Admin Dose 25 MG; Start 10/02/18 at 09:00 Losartan Potassium (Cozaar) 100 mg DAILY PO Last administered on 10/02/18 08:09; Admin Dose 100 MG; Start 10/02/18 at 09:00 Metoprolol Tartrate (Lopressor) 50 mg BID PO Last administered on 10/01/18 22:09; Admin Dose 50 MG; Start 10/01/18 at 21:00 Tamsulosin HCl (Flomax) 0.4 mg HS PO Last administered on 10/01/18 22:08; Admin Dose 0.4 MG; Start 10/01/18 at 21:00 Diagnostic Test (Pha) (Accu-Chek) 1 ea 02 XX ; Start 10/02/18 at 02:00 Insulin Glargine (Lantus) 18 units DAILY@2000 SC Last administered on 10/01/18 22:13; Admin Dose 18 UNITS; Start 10/01/18 at 20:00 Insulin Aspart (Novolog Insulin Pen) 4 unit WITH MEALS SC Last administered on 10/02/18 12:25; Admin Dose 4 UNIT; Start 10/01/18 at 18:00 Insulin Aspart (Novolog Insulin Pen) NOVOLOG *MILD* ALGORITHM WITH MEALS BEDTIME SC Last administered on 10/02/18 08:09; Admin Dose 1 UNIT; Start 10/01/18 at 18:00 Pantoprazole (Protonix Tab) 40 mg DAILY@06 PO Last administered on 10/02/18 06:01; Admin Dose 40 MG; Start 10/02/18 at 06:00 Miscellaneous Information 1 ea NOTE XX ; Start 10/01/18 at 17:30 Glucose (Glutose) 15 gm Q15M PRN PO DECREASED GLUCOSE; Start 10/01/18 at 17:30 Glucose (Glutose) 22.5 gm Q15M PRN PO DECREASED GLUCOSE; Start 10/01/18 at 17:30 Dextrose (D50w Syringe) 25 ml Q15M PRN IV DECREASED GLUCOSE; Start 10/01/18 at 17:30 Dextrose (D50w Syringe) 50 ml Q15M PRN IV DECREASED GLUCOSE; Start 10/01/18 at 17:30 Glucagon (Glucagen) 1 mg Q15M PRN IM DECREASED GLUCOSE; Start 10/01/18 at 17:30 Glucose (Glutose) 15 gm Q15M PRN BUCCAL DECREASED GLUCOSE; Start 10/01/18 at 17:30 Ciprofloxacin (Cipro) 500 mg BID@06,18 PO Last administered on 10/02/18at 06:01; Admin Dose 500 MG; Start 10/02/18 at 06:00 MARI CONCEPCION Oct 02, 2018 17:13
== END 2018-10-02 19:20 ==
LOC: SDS 10:42 → REC 16:22 → SDS 16:22 → PP2 20:00
PROVIDERS: ADMIT Urology; ATTEND Urology
DX: C67.9 Malignant neoplasm of bladder, unspecified (principal); I10 Essential (primary) hypertension; E11.9 Type 2 diabetes mellitus without complications; I25.10 Atherosclerotic heart disease of native coronary artery without angina pectoris; E78.5 Hyperlipidemia, unspecified
CPT/HCPCS: 52240; 80048; 80053; 82962; 83036; 83735; 85025; 88305; J0744; J1170; J1815; J2270; J2710; J3010; J7042; Z7500; Z7512; Z7610; G0378

== ENCOUNTER 2019-01-28 11:03 | Day surgery (SDC) | payer OTHER ==
[~2019-01-28] VITALS: Ht 165.1 cm; Wt 91.1 kg
[2019-01-28] VITALS (23 sets, daily range): BP systolic 81–120; BP diastolic 45–61; PULSE 54–66; RESP 10–24; Ht 165.1 cm; Wt 91.1 kg
[~2019-01-28 11:03] MED LIST changes: +ACET-2047 PO; +ASCO500C7 PO; +ATOR40TA68 PO; +CARB15DR7 BOTH EYES; +CHOL100062 PO; -CIPROFLOXACIN 400 MG in D5W 200 ML IVPB ONE; +CIPROFLOXACIN 400 MG in D5W 200 ML IVPB SCH; +DOCU-144 PO; -GLYCOPYRROLATE 0.4 MG INJ ONE; +HYDR-4011 PO; +HYDR25TA6 PO; +INSU100I12 SQ; +LOSA100T3 PO; +METF100010 PO; +METO-429 PO; -NEOSTIGMINE 10 MG INJ ONE; +NITR0.4T39 SL; +OMEP20CA16 PO; +SENN-120 PO; -SEVOFLURANE 15 MIN ONE; +TAMS0.4C2 PO; +TRAM50TA PO
[2019-01-28] MEDS ORDERED: TRIA15CR55 TOP (11:52)
[2019-01-28] MEDS ORDERED: GLIM2TAB47 PO (11:52)
[2019-01-28] MEDS ORDERED: [UNRECOGNIZED DRUG - CODE] BOTH EYES (11:52)
--- NOTE | 2019-01-28 13:19 | HPN ---
Date/Time of Note Date/Time of Note DATE: 01/28/19 TIME: 13:18 Interval H&P Admission Note Pt. seen H&P reviewed: No system changes NINFA ARAGON Jan 28, 2019 13:18
--- NOTE | 2019-01-28 13:26 | PREAC ---
Date/Time of Note Date/Time of Note DATE: 01/28/19 TIME: 13:25 Anesthesia Eval and Record Evaluation Time Pre-Procedure Interview DATE: 01/28/19 TIME: 13:25 Age 73 Sex male NPO: 8 hrs Preoperative diagnosis Vladder CA Planned procedure Cystoscopy, TURBT, coagulation of bleeders Past Medical History Past Medical History: Includes Cardio: Dyslipidemia, CAD, CABG Endo: Diabetes GI: Obesity Surgery & Anesthesia Issues No known issue Meds Anticoagulation: No Beta Edil within 24 hr: Yes Reported Medications Triamcinolone Acetonide* (Kenalog*) 0.1%-15GM Cr, 1 APPLIC TOP BID, #1 TUB 01/28/19 Propylene Glycol-PEG 400 (Lubricant Eye Drops) 15 Ml Drops, 1 DROP BOTH EYES QAM, EA 01/28/19 Glimepiride* (Amaryl*) 2 Mg Tablet, 2 MG PO WITH BREAKFAST, TAB 01/28/19 Cholecalciferol* (Vitamin D3*) 1,000 Unit Tablet, 1000 UNIT PO DAILY, TAB 10/01/18 Ascorbic Acid* (Vitamin C*) 500 Mg Capsule.sa, 500 MG PO BID, CAP 10/01/18 Tramadol Hcl* (Ultram*) 50 Mg Tablet, 50 MG PO Q6H PRN for PAIN, TAB 10/01/18 Tamsulosin Hcl* (Tamsulosin Hcl*) 0.4 Mg Cap.er.24h, 0.4 MG PO HS, CAP 10/01/18 Sennosides* (Senna Lax*) 8.6 Mg Tablet, 1 TAB PO BID, TAB 10/01/18 Omeprazole* (Omeprazole*) 20 Mg Capsule.dr, 20 MG PO DAILY, #30 CAP 10/01/18 Nitroglycerin* (Nitrostat*) 0.4 Mg Tab.subl, 0.4 MG SL Q5MIN PRN for CHEST PAIN, BOTTLE 10/01/18 Metoprolol Tartrate* (Lopressor*) 50 Mg Tab, 50 MG PO BID, #60 TAB 10/01/18 Metformin Hcl* (Metformin Hcl*) 1,000 Mg Tablet, 1000 MG PO WITH BREAKFAST, #30 TAB 10/01/18 Acetaminophen* (Acetaminophen*) 650 Mg Tablet, 650 MG PO Q4 PRN for PAIN AND OR ELEVATED TEMP, #30 TAB 10/01/18 Hydrocodone/Acetaminophen ([place] 5-325 Tablet) 1 Each Tablet, 2 EACH PO Q6 PRN for PAIN LEVEL 7-10, TAB 10/01/18 Hydrocodone/Acetaminophen ([place] 5-325 Tablet) 1 Each Tablet, 1 EACH PO Q6 PRN for PAIN LEVEL 4-6, TAB 10/01/18 Atorvastatin* (Atorvastatin*) 40 Mg Tablet, 40 MG PO QHS, #30 TAB 10/01/18 Hydrochlorothiazide* (Hydrochlorothiazide*) 25 Mg Tab, 25 MG PO DAILY, #30 TAB HOLD IF SBP BELOW 110 OR HR BELOW 60 10/01/18 Insulin Lispro (Humalog Kwikpen U-100) 100 Unit/1 Ml Insuln.pen, 0 SQ DAILY PRN for PER SLIDING SCALE, EA 1-5 UNITS PER SLIDING SCALE 10/01/18 Losartan Potassium* (Cozaar*) 100 Mg Tablet, 100 MG PO DAILY, #30 TAB HOLD IF SBP BELOW 110 OR HR BELOW 60 10/01/18 Docusate Sodium* (Colace*) 100 Mg Capsule, 100 MG PO DAILY, #30 CAP 10/01/18 Discontinued Reported Medications Carboxymethylcellulose Sodium (Refresh Liquigel) 15 Ml Drp.lq.gel, 2 DRP BOTH EYES BID, BOTTLE 10/01/18 Current Medications Ciprofloxacin/ Dextrose 200 ml @ 200 mls/hr PRE-OP IVPB ; Start 01/27/19 at 17:00; Stop 01/28/19 at 19:00 Meds reviewed: Yes Allergies Coded Allergies: Penicillins (Verified Allergy, Unknown, 01/28/19) Allergies Reviewed: Yes Labs/Studies Labs Reviewed: Reviewed by anesthesiologist test: N/A Pre-procedure Exam Last vitals Vital Signs Date Temp Pulse Resp B/P (MAP) Pulse Ox O2 O2 Flow FiO2 Time Delivery Rate 01/28/19 98.1 66 16 114/57 96 Room Air 11:56 (76) Airway: Adequate mouth opening Mallampati: Mallampati II Teeth: Normal Lung: Normal Heart: Normal ASA Physical Status ASA physical status: 3 Emergency: None Planned Anesthetic General/MAC: ETT Pre-operative Attestations Prior to commencing anesthesia and surgery, the patient was re-evaluated, there was verification of: *The patient's identity *The results of appropriate recent lab work and preoperative vital signs *The above evaluation not changing prior to induction *Anesthetic plan, risk benefits, alternative and complications discussed with patient/family; questions answered; patient/family understands, accepts and wishes to proceed. ROME KRAFT MD Jan 28, 2019 13:26
[2019-01-28] MEDS ORDERED: GLYCOPYRROLATE 0.4 MG INJ ONE ×3 (13:39→14:18)
[2019-01-28] MEDS ORDERED: LIDOCAINE 2% (SDV) 5 ML INJ ONE (13:39)
[2019-01-28] MEDS ORDERED: PROPOFOL 20 ML ONE (13:39)
[2019-01-28] MEDS ORDERED: ROCURONIUM 50 MG INJ ONE (13:39)
[2019-01-28] MEDS ORDERED: SUCCINYLCHOLINE CHLORIDE 100 MG/5 ML SYG IV ONE (13:39)
[2019-01-28] MEDS ORDERED: NEOSTIGMINE 3 MG/3 ML SYRINGE ONE ×2 (13:39→14:18)
[2019-01-28] MEDS ORDERED: ONDANSETRON 4 MG INJ ONE (14:18)
[2019-01-28] MEDS ORDERED: METOCLOPRAMIDE 10 MG INJ ONE (14:18)
[2019-01-28] MEDS ORDERED: KETOROLAC 30 MG INJ ONE (14:22)
--- NOTE | 2019-01-28 14:28 | PDOCDIS ---
Discharge Instructions DIAGNOSIS Discharge Diagnosis Bladder Cancer CONDITION [place] Patient Condition: [place] Good HOME CARE INSTRUCTIONS: [place] Diet Instructions: [place] Regular ACTIVITY: [place] Activity Restrictions: [place] Slowly Increase Activity [place] Bathing Restrictions: [place] Shower FOLLOW UP/APPOINTMENTS Follow-up Plan 2 weeks for removal of Roper, call for date and time REFERRALS [place] Referring Provider: NINFA Duff OTHER ORDERS: Other Orders: Roper to leg bag NINFA ARAGON Jan 28, 2019 14:28
[2019-01-28] MEDS ORDERED: BELLADONNA ALK/OPIUM SUPP PR ONE (14:30)
--- NOTE | 2019-01-28 14:31 | OPR ---
Date/Time of Note Date/Time of Note DATE: 01/28/19 TIME: 14:29 Operative Report Procedure Date: Jan 28, 2019 Preoperative Diagnosis bladder cancer Postoperative Diagnosis same Operation/Procedure Performed TURBT of base of tumor, rule out muscle invasion Surgeon Ti Speech Therapist Technician none Anesthesia Type: general Anesthesiologist: ROME KRAFT MD Estimated Blood Loss: none Transfusion none Specimen right lateral wall Grafts/Implants none Tubes/Drains [address] Complications none Pt Condition Post Procedure: stable Disposition: PACU Indications bladder cancer Procedure Description dict [id number] NINFA ARAGON Jan 28, 2019 14:31
[2019-01-28] MEDS ORDERED: LABETALOL HCL 20MG INJ ONE (14:36)
[2019-01-28] MEDS ORDERED: METOCLOPRAMIDE 10 MG INJ IV PRN (15:00)
[2019-01-28] MEDS ORDERED: OXYCODONE/ACETAMINOPHEN (5/325) TAB PO PRN ×2 (15:00)
[2019-01-28] MEDS ORDERED: LABETALOL HCL 20MG INJ IV PRN (15:00)
[2019-01-28] MEDS ORDERED: FENTAnyl 50 MCG/ML VIAL IV PRN ×3 (15:00)
[2019-01-28] MEDS ORDERED: ONDANSETRON 4 MG INJ IV PRN (15:00)
[2019-01-28] MEDS ORDERED: MIDAZOLAM 1 MG/ML 2 ML INJ IV PRN (15:00)
[2019-01-28] MEDS ORDERED: EPHEDrine 25 MG/5 ML SYG IV PRN (15:00)
[2019-01-28] MEDS ORDERED: hydrALAzine 20 MG INJ IV PRN (15:00)
[2019-01-28] MEDS ORDERED: HYDROmorphONE 1 MG/5 ML IV SYRINGE IV PRN ×3 (15:00)
[2019-01-28] MEDS ORDERED: DIPHENHYDRAMINE 50 MG INJ IV PRN (15:00)
[2019-01-28] MEDS ORDERED: MEPERIDINE 25 MG INJ IV PRN (15:00)
--- NOTE | 2019-01-28 16:10 | PAC ---
Date/Time of Note Date/Time of Note DATE: 01/28/19 TIME: 16:10 Post-Anesthesia Notes Post-Anesthesia Note Last documented vital signs Vital Signs Date Temp Pulse Resp B/P (MAP) Pulse Ox O2 O2 Flow FiO2 Time Delivery Rate 01/28/19 54 14 104/51 99 Mask 6.0 15:53 (68) 01/28/19 98.2 14:57 Activity: WNL Respiratory function: WNL Cardiovascular function: WNL Mental status: Baseline Pain reasonably controlled: Yes Hydration appropriate: Yes Nausea/Vomiting absent: Yes Comments BT: 98.5 ROME KRAFT MD Jan 28, 2019 16:10
--- NOTE | 2019-01-29 04:26 | OPR ---
DATE OF OPERATION: 01/28/2019 PREOPERATIVE DIAGNOSES: 1. Bladder cancer. 2. Rule out muscle invasion. POSTOPERATIVE DIAGNOSES: 1. Bladder cancer. 2. Rule out muscle invasion. PROCEDURE: Cystoscopy, transurethral resection of the right lateral wall with deep biopsy to rule ou t muscle invasion and coagulation of bleeding points. SURGEON: Alonzo Aragon MD ANESTHESIA: General. COMPLICATIONS: None. SPECIMEN: Right lateral wall. PROCEDURE IN DETAILS: The patient was brought to the operating room and placed on the operating tabl e in supine lithotomy position. He was prepped and draped in the usual fashion after anesthesia was induced. A timeout was undertaken. Appropriate pressure points were padded. He received preoperati ve antibiotic therapy. Sequential compression devices were applied. Rigid cystoscopy was undertaken with a 12-degree, 30-degree and 70-degree angle lens. No abnormalities of the anterior or posterior urethra could be appreciated except for enlargement of the prostatic lobes. Bladder was inspected i n a systematic fashion. Bilateral ureteral orifices within normal limits and well preserved througho ut the entire case. The right lateral wall is healing well without any noted return of carcinoma. T he remaining portions of the bladder were inspected in a systematic fashion and no recurrent carcinom a could be appreciated. Resection of the base of the bladder tumor was undertaken today on the right lateral wall where multiple biopsies were obtained including the muscle fibers. Utilizing the rigid cold cup biopsy, this area was then coagulated with pinpoint hemostasis being obtained. No perforat ion of the bladder could be appreciated. Biopsies were obtained from an extraperitoneal portion of t he bladder. A 2-way Roper catheter was inserted and left to gravity drainage. Efflux of urine was c rystal clear. He was transferred to recovery room in stable condition and will be discharged home on [place] one tab p.o. q.6 hours p.r.n., dispensed #25, no refill. He will follow up in the offic e in 10 days' time to discuss pathology results and a trial of void. Dictated By: ALONZO ARAGON MD EGR/NTS Conf#: [id number] DID#: [id number]
== END 2019-01-28 17:35 | disposition home or self-care (01) ==
LOC: SDS 11:03
PROVIDERS: ATTEND Urology
DX: C67.2 Malignant neoplasm of lateral wall of bladder (principal); I10 Essential (primary) hypertension; E78.5 Hyperlipidemia, unspecified; F17.210 Nicotine dependence, cigarettes, uncomplicated; R35.1 Nocturia; R35.0 Frequency of micturition
CPT/HCPCS: 82962; 88305; J0744; J1170; J1885; J2405; J2710; J2765